=== PATIENT | female | born 1960 | race Caucasian/White ===

== ENCOUNTER 2017-11-13 12:24 | Emergency (ER) | payer SELFPAY ==
--- NOTE | 2017-11-13 12:34 | PDOC ---
History of Present Illness - General Chief Complaint: Injury Stated Complaint: LEFT ANKLE PAIN Time Seen by Provider: 11/13/17 12:29 History Source: Patient Exam Limitations: No Limitations - History of Present Illness Initial Comments: 57 yo F history HTN, DM presents with L medial ankle pain after hitting it with something hard at home. Denies any falls, weakness, numbness. No prior similar symptoms. Pain localizes to L medial ankle and proximal foot. Worse with ambulation, but she is able to bear weight. Past History - Past Medical History Allergies/Adverse Reactions: Allergies Allergy/AdvReac Type Severity Reaction Status Date / Time No Known Drug Allergies Allergy Verified 11/13/17 12:33 Home Medications: Ambulatory Orders Aspirin [Aspirin EC] 81 mg PO DAILY 11/13/17 Enalapril Maleate 5 mg PO DAILY 11/13/17 Metformin HCl [Metformin HCl ER] 1,000 mg PO BID 11/13/17 Review of Systems - Review of Systems Able to Perform ROS?: Yes Comments:: GENERAL/CONSTITUTIONAL: No fever or chills. No weakness. HEAD, EYES, EARS, NOSE AND THROAT: No change in vision. No ear pain or discharge. No sore throat. MUSCULOSKELETAL: +L ankle and foot pain. No neck or back pain. SKIN: No rash NEUROLOGIC: No headache, vertigo, loss of consciousness, or change in strength/ sensation. HEMATOLOGIC/LYMPHATIC: No anemia, easy bleeding, or history of blood clots. ALLERGIC/IMMUNOLOGIC: No hives or skin allergy. *Physical Exam - Physical Exam Comments: GENERAL: Awake, alert, and fully oriented, in no acute distress HEAD: No signs of trauma EXTREMITIES: L ankle with tenderness over medial malleolus and L foot just distal to the medial malleolus and proximal to the instep. Remainder of extremities with normal range of motion, no edema. No clubbing or cyanosis. No cords, erythema, or tenderness NEUROLOGICAL: Cranial nerves II through XII grossly intact. Normal speech, normal gait SKIN: Warm, Dry, normal turgor, no rashes or lesions noted. Medical Decision Making - Medical Decision Making 11/13/17 14:37 XR negative for fx. Clinical picture is more consistent with sprain. Stable for DC home. *DC/Admit/Observation/Transfer Diagnosis at time of Disposition: Left ankle sprain Qualifiers: Encounter type: initial encounter Involved ligament of ankle: unspecified ligament Qualified Code(s): S93.402A - Sprain of unspecified ligament of left ankle, initial encounter - Discharge Dispostion Disposition: HOME Condition at time of disposition: Stable Admit: No - Referrals - Patient Instructions Printed Discharge Instructions: DI for Ankle Sprain Print Language: OCCITAN - Post Discharge Activity
[2017-11-13] MEDS ORDERED: ACETAMINOPHEN 325 MG TABLET (FP) PO ONE (12:42)
[2017-11-13] MEDS ORDERED: ACETAMINOPHEN 325 MG TABLET (FP) ONE (12:57)
[2017-11-13 14:07] VITALS: BP 132/77; PULSE 76; TEMP 98.1; BMI 24.7
== END 2017-11-13 14:55 | disposition home or self-care (01) ==
LOC: FER 12:24
DX: S93.402A Sprain of unspecified ligament of left ankle, initial encounter (principal); X79.XXXA Intentional self-harm by blunt object, initial encounter; Y93.89 Activity, other specified; Y92.89 Other specified places as the place of occurrence of the external cause; I10 Essential (primary) hypertension; E11.9 Type 2 diabetes mellitus without complications
CPT/HCPCS: 73610-TC-LT; 73630-TC-LT; 99282-25